=== PATIENT | male | born 1945 | race Caucasian/White ===

== ENCOUNTER → 2020-05-05 15:42 | Outpatient (BNVA) | payer MEDICARE, SELFPAY | PROVIDERS: PCP Internal Medicine; Visit Provider Urology | DX: Z76.89 Persons encountering health services in other specified circumstances (principal) | CPT/HCPCS: Q3014 ==

== ENCOUNTER → 2020-11-17 13:29 | Outpatient (BNVA) | payer MEDICARE, SELFPAY | PROVIDERS: PCP Internal Medicine; Visit Provider Urology | DX: R97.21 Rising PSA following treatment for malignant neoplasm of prostate (principal); C61 Malignant neoplasm of prostate | CPT/HCPCS: 99212 ==

== ENCOUNTER → 2021-06-30 13:19 | Outpatient (BNVA) | payer MEDICARE, SELFPAY | PROVIDERS: PCP Internal Medicine; Visit Provider Urology | DX: Z13.89 Encounter for screening for other disorder (principal) | CPT/HCPCS: Q3014 ==

== ENCOUNTER → 2021-10-28 09:54 | Outpatient (BNVA) | payer MEDICARE, SELFPAY | PROVIDERS: PCP Internal Medicine; Visit Provider Urology | DX: C61 Malignant neoplasm of prostate (principal); R97.21 Rising PSA following treatment for malignant neoplasm of prostate; R39.15 Urgency of urination | CPT/HCPCS: Q3014 ==

== ENCOUNTER → 2021-11-19 08:36 | Outpatient (BNVA) | payer MEDICARE, SELFPAY | PROVIDERS: PCP Internal Medicine; Visit Provider Urology | DX: R97.21 Rising PSA following treatment for malignant neoplasm of prostate (principal); C61 Malignant neoplasm of prostate | CPT/HCPCS: Q3014 ==

== ENCOUNTER → 2022-03-22 09:51 | Outpatient (BNVA) | payer MEDICARE, SELFPAY | PROVIDERS: PCP Internal Medicine; Visit Provider Urology | DX: R97.21 Rising PSA following treatment for malignant neoplasm of prostate (principal); M81.0 Age-related osteoporosis without current pathological fracture; N52.31 Erectile dysfunction following radical prostatectomy; C61 Malignant neoplasm of prostate | CPT/HCPCS: Q3014 ==

== ENCOUNTER → 2022-08-19 10:25 | Outpatient (BNVA) | payer MEDICARE, SELFPAY | PROVIDERS: PCP Internal Medicine; Visit Provider Urology | DX: M81.0 Age-related osteoporosis without current pathological fracture (principal); R97.21 Rising PSA following treatment for malignant neoplasm of prostate; C61 Malignant neoplasm of prostate | CPT/HCPCS: 99212 ==

== ENCOUNTER 2023-02-21 09:48 | Outpatient (AMB) | payer MEDICARE, SELFPAY ==
--- NOTE | 2023-02-21 09:49 | MHC.OFFVIS ---
Intake Intake Visit Reasons: 6M/PSA(set) Intake Note: Patient is Present for Telephone Follow Up For Urology Med: Patient states he was told to stop Finasteride, Was informed to take one month and one month off Antibiotic Allergy: None Blood Thinner: None Pharamcy: Big Y Allergies No Known Allergies Allergy (Verified 02/21/23 09:51) Medication List - Last Reconciled 02/21/23 by David Gandhi MD finasteride 5 mg PO DAILY 90 days flu vac 2019 [id number](PF) 60 mcg (15 mcg x 4)/0.5 mL mL IM pravastatin 20 mg PO DAILY HPI HPI Comments History of Present Illness Details Elvis is very pleasant male. He is a patient of Dr. Patterson. He is seen for the following urologic conditions - prostate cancer - rising PSA following treatment for prostate cancer Telemedicine Evaluation 15 min Consultation [employer] Aure Video attempted Continued PSA rise No evidence of recurrence on PET-CT Had been on alternate months finasteride Try 3 months with finasteride repeat PSA Prostate cancer: Initial therapy prostatectomy 2006, external beam radiation for rising PSA 2012 PSA continues upward trend Prostate cancer was diagnosed [address] Fields. Diagnosis was reached by needle biopsy, for elevated PSA, PSA at diagnosis 4.7. The [place] grade is 4+3 = 7, at surgery with KAYLA. TNM Classification of Malignant Tumours (TNM) T3a The D'Anthony (NCCN) risk category is Intermediate Risk (PSA 10-20, Gl 7, T2). Initial therapy included Primary treatment, Prostatectomy (RRP/Robotic) 2006 , Additional treatment, Observation PSA rise 2012 to 1.2 , Additional treatment, External Beam Radiation finish April 2013. Recent labs included a PSA (prostate-specific antigen) Dec 2015 , < 0.1, a testosterone 413, Jun 2016 < 0.1, November 2016 , a PSA (prostate-specific antigen), , < 0.1, 07/09 , a PSA (prostate-specific antigen) 0.1, 12/06 , a PSA (prostate-specific antigen), 0.1, T 416, 07/10 , a PSA (prostate-specific antigen) 0.2, 11/07 0.2 03/09 0.2, 09/08 0.3, 04/10 0.4, 11/09 0.5, 05/11 0.8, 11/10 1.1, 03/12 0.4, 08/11 0.8, 02/11 1.3 Imaging - 11/10 PET/CT Pylarify - no focal recurrence or metastatic disease Associated conditions erectile dysfunction Yes On Viagra hematuria No hot flashes No incontinence No osteopenia Yes Complete infusion Therapeutic plan: Start finasteride. Four month follow-up PSA Erectile Dysfunction Responsive to Viagra [facility] Medical History Erectile dysfunction Osteoporosis Hyperlipidemia Rising PSA following treatment for malignant neoplasm of prostate Erectile dysfunction following radical prostatectomy Prostate cancer Surgical History History of radical retropubic prostatectomy History of hernia repair History of hip surgery Review of Systems Const All systems reviewed & are unremarkable except as noted in HPI and below Reports no additional complaints Resp Reports no additional complaints GI Reports no additional complaints Reports as per HPI Musc Reports no additional complaints Physical Exam Telemedicine evaluation Appropriate responses Regular breathing rate and rhythm HEENT Head: Yes normal to inspection Ears: hearing grossly normal bilaterally Eyes General: appearance normal, both eyes and all related structures Neck Neck: Yes normal visual inspection Chest Chest palpation & inspection: normal inspection of the chest Resp Effort & Inspection: normal respiratory effort and able to speak in complete sentences Assessment & Plan Assessment & Plan (1) Osteoporosis: Code(s): M81.0 - Age-related osteoporosis without current pathological fracture Qualifiers: Osteoporosis type: other Encounter type: subsequent encounter (2) Prostate cancer: Comment: Radical prostatectomy 2006, salvage radiation 2012 Code(s): C61 - Malignant neoplasm of prostate (3) Rising PSA following treatment for malignant neoplasm of prostate: Code(s): R97.21 - Rising PSA following treatment for malignant neoplasm of prostate Plan Three month follow-up PSA Orders: Orders Prostate Specific Antigen 3 Months R97.21 - Rising PSA following treatment for malignant neoplasm of prostate Medications: New finasteride 5 mg PO DAILY 90 days 90 tabs 1RF N13.8 - Other obstructive and reflux uropathy, N40.1 - Benign prostatic hyperplasia with lower urinary tract symptoms, R33.9 - Retention of urine, unspecified, R97.21 - Rising PSA following treatment for malignant neoplasm of prostate Patient Instructions: Imaging studies, laboratory and physical exam results were discussed and reviewed in detail. No major barriers to patient understanding were identified. An opportunity to ask questions regarding the treatment plan was provided. All questions were answered. The patient expressed understanding and agreement with the above treatment plan. The patient is aware they should contact our office by phone for worsening of their current condition or the appearance of new urologic symptoms. Compliance is encouraged with any medications and followup testing that is ordered. It is a privilege to participate in the urologic care of your patient. If you have any questions or concerns regarding treatment for the above conditions, or other urologic issues, please do not hesitate to contact me. The office telephone contact is [phone]. This note is constructed using voice recognition software. While every effort has been made to ensure accuracy staff development nurse errors may have been included. Yours sincerely, Dr David Gandhi MD, [facility] - Urology Providers of Expert, Compassionate Care for the Genitourinary System Telehealth Telehealth Location of provider rendering services: practice address Location of patient: address on file Patient Identification confirmed using: Name, : Yes Telehealth method: video Patient verbally consented to treatment: Yes Patient verbally consented to billing insurance company: Yes Patient informed of any privacy concerns related to visit: Yes Coding Level of Care Code Tele Est Pt Level 3 (80688) Diagnoses Osteoporosis M81.0 Osteoporosis type: other Encounter type: subsequent encounter Prostate cancer C61 Rising PSA following treatment for malignant neoplasm of prostate R97.21
== END 2023-02-21 10:40 | disposition home or self-care (01) ==
LOC: HO.HUSH 09:48
PROVIDERS: PCP Internal Medicine; Visit Provider Urology
DX: M81.0 Age-related osteoporosis without current pathological fracture (principal); C61 Malignant neoplasm of prostate; R97.21 Rising PSA following treatment for malignant neoplasm of prostate
CPT/HCPCS: 99213

== ENCOUNTER → 2023-02-21 09:48 | Outpatient (BNVA) | payer MEDICARE, SELFPAY | PROVIDERS: PCP Internal Medicine; Visit Provider Urology ==

== ENCOUNTER 2023-05-26 10:41 | Outpatient (AMB) | payer MEDICARE, SELFPAY ==
--- NOTE | 2023-05-26 10:45 | MHC.OFFVIS ---
Intake Intake Visit Reasons: 3m/PSA(set) Intake Note: Patient is Present for Telephone Follow Up PSA Urology Med: Finasteride Antibiotic Allergy: None Blood Thinner: None Allergies No Known Allergies Allergy (Verified 02/21/23 09:51) Medication List - Last Reconciled 05/26/23 by David Gandhi MD finasteride 5 mg PO DAILY 90 days flu vac 2019 [id number](PF) 60 mcg (15 mcg x 4)/0.5 mL mL IM pravastatin 20 mg PO DAILY HPI HPI Comments History of Present Illness Details Elvis is very pleasant male. He is a patient of Dr. Pattersno. He is seen for the following urologic conditions - prostate cancer - rising PSA following treatment for prostate cancer Telemedicine Evaluation 15 min Consultation [employer] Aure Video attempted PSA has stayed relatively well controlled over past 3 months with slight moved He understands that hormone therapy would be required with a PSA of approximately 4 Will continue to follow with interval surveillance No evidence of recurrence on PET-CT - 11/10 PSA 1.1 Prostate cancer: Initial therapy prostatectomy 2006, external beam radiation for rising PSA 2012 PSA continues upward trend Prostate cancer was diagnosed [address] Fields. Diagnosis was reached by needle biopsy, for elevated PSA, PSA at diagnosis 4.7. The [place] grade is 4+3 = 7, at surgery with KAYLA. TNM Classification of Malignant Tumours (TNM) T3a The D'Anthony (NCCN) risk category is Intermediate Risk (PSA 10-20, Gl 7, T2). Initial therapy included Primary treatment, Prostatectomy (RRP/Robotic) 2006 , Additional treatment, Observation PSA rise 2012 to 1.2 , Additional treatment, External Beam Radiation finish April 2013. Recent labs included a PSA (prostate-specific antigen) Dec 2015 , < 0.1, a testosterone 413, Jun 2016 < 0.1, November 2016 , a PSA (prostate-specific antigen), < 0.1, 07/09 , a PSA (prostate-specific antigen) 0.1, 12/06 , a PSA (prostate-specific antigen), 0.1, T 416, 07/10 , a PSA (prostate-specific antigen) 0.2, 11/07 0.2 03/09 0.2, 09/08 0.3, 04/10 0.4, 11/09 0.5, 05/11 0.8, 11/10 1.1, 03/12 0.4, 08/11 0.8, 02/11 1.3, 06/14 1.5 Imaging - 11/10 PET/CT Pylarify - no focal recurrence or metastatic disease Associated conditions erectile dysfunction Yes On Viagra osteopenia Yes Complete infusion Therapeutic plan: 4 month follow-up PSA Erectile Dysfunction Responsive to Viagra [facility] Medical History Erectile dysfunction Osteoporosis Hyperlipidemia Rising PSA following treatment for malignant neoplasm of prostate Erectile dysfunction following radical prostatectomy Prostate cancer Surgical History History of radical retropubic prostatectomy History of hernia repair History of hip surgery Review of Systems Const All systems reviewed & are unremarkable except as noted in HPI and below Reports no additional complaints Resp Reports no additional complaints GI Reports no additional complaints Reports as per HPI Musc Reports no additional complaints Physical Exam Telemedicine evaluation Appropriate responses Regular breathing rate and rhythm HEENT Head: Yes normal to inspection Ears: hearing grossly normal bilaterally Eyes General: appearance normal, both eyes and all related structures Neck Neck: Yes normal visual inspection Chest Chest palpation & inspection: normal inspection of the chest Resp Effort & Inspection: normal respiratory effort and able to speak in complete sentences Assessment & Plan Assessment & Plan (1) Prostate cancer: Comment: Radical prostatectomy 2006, salvage radiation 2012 Code(s): C61 - Malignant neoplasm of prostate (2) Rising PSA following treatment for malignant neoplasm of prostate: Code(s): R97.21 - Rising PSA following treatment for malignant neoplasm of prostate Plan Four month follow-up Orders: Orders Prostate Specific Antigen 4 Months C61 - Malignant neoplasm of prostate Medications: Refilled finasteride 5 mg PO DAILY 90 tabs 1RF 90 days N13.8 - Other obstructive and reflux uropathy, N40.1 - Benign prostatic hyperplasia with lower urinary tract symptoms, R33.9 - Retention of urine, unspecified, R97.21 - Rising PSA following treatment for malignant neoplasm of prostate Patient Instructions: Imaging studies, laboratory and physical exam results were discussed and reviewed in detail. No major barriers to patient understanding were identified. An opportunity to ask questions regarding the treatment plan was provided. All questions were answered. The patient expressed understanding and agreement with the above treatment plan. The patient is aware they should contact our office by phone for worsening of their current condition or the appearance of new urologic symptoms. Compliance is encouraged with any medications and followup testing that is ordered. It is a privilege to participate in the urologic care of your patient. If you have any questions or concerns regarding treatment for the above conditions, or other urologic issues, please do not hesitate to contact me. The office telephone contact is [phone]. This note is constructed using voice recognition software. While every effort has been made to ensure accuracy diaphragm builder errors may have been included. Yours sincerely, Dr David Gandhi MD, [facility] - Urology Providers of Expert, Compassionate Care for the Genitourinary System Telehealth Telehealth Location of provider rendering services: practice address Location of patient: address on file Patient Identification confirmed using: Name, : Yes Telehealth method: video Patient verbally consented to treatment: Yes Patient verbally consented to billing insurance company: Yes Patient informed of any privacy concerns related to visit: Yes Coding Level of Care Code Tele Est Pt Level 3 (59661) Diagnoses Prostate cancer C61 Rising PSA following treatment for malignant neoplasm of prostate R97.21
== END 2023-05-26 11:06 | disposition home or self-care (01) ==
LOC: HO.HUSH 10:41
PROVIDERS: PCP Internal Medicine; Visit Provider Urology
DX: C61 Malignant neoplasm of prostate (principal); R97.21 Rising PSA following treatment for malignant neoplasm of prostate
CPT/HCPCS: 99213

== ENCOUNTER → 2023-05-26 10:41 | Outpatient (BNVA) | payer MEDICARE, SELFPAY | PROVIDERS: PCP Internal Medicine; Visit Provider Urology ==

== ENCOUNTER 2023-09-26 10:25 | Outpatient (AMB) | payer MEDICARE, SELFPAY ==
--- NOTE | 2023-09-26 10:36 | A.OFFVIS_ITS ---
Intake Visit Reasons: 4m/PSA(set)Vm to confirm Intake Note: Patient is Present for Follow Up Urology Medication: Finasteride Antibiotic Allergies: None Blood Thinners:None Allergies No Known Allergies Allergy (Verified 02/21/23 09:51) Medication List - Last Reconciled 09/26/23 by David Gandhi MD finasteride 5 mg PO DAILY 90 days flu vac 2019 [id number](PF) 60 mcg (15 mcg x 4)/0.5 mL mL IM pravastatin 20 mg PO DAILY HPI Comments Details: Elvis is very pleasant male. He is a patient of Dr. Patterson. He is seen for the following urologic conditions - prostate cancer - rising PSA following treatment for prostate cancer Continue slow PSA rise doubling time over 12 months Would remain on cycling finasteride Four month follow-up PSA No evidence of recurrence on PET-CT - 11/10 PSA 1.1 Prostate cancer: Initial therapy prostatectomy 2006, external beam radiation for rising PSA 2012 PSA continues upward trend Prostate cancer was diagnosed [address] Fields. Diagnosis was reached by needle biopsy, for elevated PSA, PSA at diagnosis 4.7. The [place] grade is 4+3 = 7, at surgery with KAYLA. TNM Classification of Malignant Tumours (TNM) T3a The D'Anthony (NCCN) risk category is Intermediate Risk (PSA 10-20, Gl 7, T2). Initial therapy included Primary treatment, Prostatectomy (RRP/Robotic) 2006 , Additional treatment, Observation PSA rise 2012 to 1.2 , Additional treatment, External Beam Radiation finish April 2013. Recent labs included a PSA (prostate-specific antigen) Dec 2015 , < 0.1, a testosterone 413, Jun 2016 < 0.1, November 2016 , a PSA (prostate-specific antigen), < 0.1, 07/09 , a PSA (prostate-specific antigen) 0.1, 12/06 , a PSA (prostate-specific antigen), 0.1, T 416, 07/10 , a PSA (prostate-specific antigen) 0.2, 11/07 0.2 03/09 0.2, 09/08 0.3, 04/10 0.4, 11/09 0.5, 05/11 0.8, 11/10 1.1, 03/12 0.4, 08/11 0.8, 02/11 1.3, 06/14 1.5, 10/12 1.9 Imaging - 11/10 PET/CT Pylarify - no focal recurrence or metastatic disease Associated conditions erectile dysfunction Yes On Viagra osteopenia Yes Complete infusion Therapeutic plan: 4 month follow-up PSA Erectile Dysfunction Responsive to Vi[facility] Medical History Erectile dysfunction Osteoporosis Hyperlipidemia Rising PSA following treatment for malignant neoplasm of prostate Erectile dysfunction following radical prostatectomy Prostate cancer Surgical History History of radical retropubic prostatectomy History of hernia repair History of hip surgery Review of Systems Const Denies chills and Denies fever(s) Card Reports no additional complaints and Denies syncope Resp Denies cough GI Denies abdominal pain and Denies heartburn Reports as per HPI and Denies change in libido Neuro Denies syncope Psych Denies change in libido Endo Denies change in libido Physical Exam Const General: cooperative, healthy appearing, comfortable and no acute distress Orientation/consciousness: patient oriented x3 HEENT Face and sinus: Yes normal facial exam Mouth: moist mucous membranes Neck Neck: Yes normal visual inspection, Yes full ROM and Yes trachea midline Chest Chest palpation & inspection: normal inspection of the chest Resp Effort & Inspection: normal respiratory effort, able to speak in complete sentences and no respiratory distress GI Inspection: Yes normal to inspection Back/Spine/Pelvis Cervical Spine: normal cervical lordosis Thoracic/Lumbar Spine: thoracic and lumbar spine normal to inspection Skin General skin exam: no rashes or lesions noted Neuro General: patient oriented x3, gait normal, tone normal and moves all extremities Extrem General: Yes normal to inspection and Yes capillary refill normal Assessment & Plan Assessment & Plan (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 No major barriers to patient understanding were identified. An opportunity to ask questions regarding the treatment plan was provided. All questions were answered. The patient expressed understanding and agreement with the above treatment plan. The patient is aware they should contact our office by phone for worsening of their current condition or the appearance of new urologic symptoms. Compliance is encouraged with any medications and followup testing that is ordered. It is a privilege to participate in the urologic care of your patient. If you have any questions or concerns regarding treatment for the above conditions, or other urologic issues, please do not hesitate to contact me. The office telephone contact is [phone]. This note is constructed using voice recognition software. While every effort has been made to ensure accuracy dosier operator errors may have been included. Yours sincerely, Dr David Gandhi MD, [facility] - Urology Providers of Expert, Compassionate Care for the Genitourinary System Coding Level of Care Code Est Pt Level 3 (81412) Diagnoses Biochemically recurrent castration-sensitive adenocarcinoma of prostate C61; R97.21; Z19.1
== END 2023-09-26 11:00 | disposition home or self-care (01) ==
PROVIDERS: PCP Internal Medicine; Visit Provider Urology
DX: C61 Malignant neoplasm of prostate (principal); R97.21 Rising PSA following treatment for malignant neoplasm of prostate; Z19.1 Hormone sensitive malignancy status
CPT/HCPCS: 99213

== ENCOUNTER → 2023-09-26 10:25 | Outpatient (BNVA) | payer MEDICARE, SELFPAY | PROVIDERS: PCP Internal Medicine; Visit Provider Urology | DX: R97.21 Rising PSA following treatment for malignant neoplasm of prostate (principal); C61 Malignant neoplasm of prostate; Z19.1 Hormone sensitive malignancy status | CPT/HCPCS: 99212 ==

== ENCOUNTER 2024-01-26 10:03 | Outpatient (AMB) | payer MEDICARE, SELFPAY ==
--- NOTE | 2024-01-26 10:04 | MHC.OFFVIS ---
Intake Visit Reasons: 4m/PSA(SET) Intake Note: Patient is Present for Telephone Follow Up PSA Urology Med: Finasteride Antibiotic Allergy:None Blood Thinner:None Recent PSA 01/24/2024 PSA- 2.5 Small Business Sales Representative Required: No Allergies No Known Allergies Allergy (Verified 01/26/24 10:05) Medication List - Last Reconciled 01/26/24 by David Gandhi MD finasteride 5 mg PO DAILY 90 days flu vac 2019 [id number](PF) 60 mcg (15 mcg x 4)/0.5 mL mL IM pravastatin 20 mg PO DAILY HPI Comments Details: Elvis is very pleasant male. He is a patient of Dr. Carrion. He is seen for the following urologic conditions - prostate cancer - rising PSA following treatment for prostate cancer Telemedicine Evaluation 15 min Consultation [employer] Aure Video Has been cycling finasteride PSA doubling time greater than 12 months Six-month follow-up Discussed intermittent hormone therapy No evidence of recurrence on PET-CT - 11/10 PSA 1.1 Prostate cancer: Initial therapy prostatectomy 2006, external beam radiation for rising PSA 2012 PSA continues upward trend Prostate cancer was diagnosed [address] Fields. Diagnosis was reached by needle biopsy, for elevated PSA, PSA at diagnosis 4.7. The [place] grade is 4+3 = 7, at surgery with KAYLA. TNM Classification of Malignant Tumours (TNM) T3a The D'Anthony (NCCN) risk category is Intermediate Risk (PSA 10-20, Gl 7, T2). Initial therapy included Primary treatment, Prostatectomy (RRP/Robotic) 2006 , Additional treatment, Observation PSA rise 2012 to 1.2 , Additional treatment, External Beam Radiation finish April 2013. Recent labs included a PSA (prostate-specific antigen) Dec 2015 , < 0.1, a testosterone 413, Jun 2016 < 0.1, November 2016 , a PSA (prostate-specific antigen), < 0.1, 07/09 , a PSA (prostate-specific antigen) 0.1, 12/06 , a PSA (prostate-specific antigen), 0.1, T 416, 07/10 , a PSA (prostate-specific antigen) 0.2, 11/07 0.2 03/09 0.2, 09/08 0.3, 04/10 0.4, 11/09 0.5, 05/11 0.8, 11/10 1.1, 03/12 0.4, 08/11 0.8, 02/11 1.3, 06/14 1.5, 10/12 1.9, 02/12 2.5 Imaging - 11/10 PET/CT Pylarify - no focal recurrence or metastatic disease Associated conditions erectile dysfunction Yes On Viagra osteopenia Yes Complete infusion Therapeutic plan: Six-month follow-up PSA Erectile Dysfunction Responsive to Viagra [facility] Medical History Erectile dysfunction Osteoporosis Hyperlipidemia Rising PSA following treatment for malignant neoplasm of prostate Erectile dysfunction following radical prostatectomy Prostate cancer Surgical History History of radical retropubic prostatectomy History of hernia repair History of hip surgery Review of Systems Const All systems reviewed & are unremarkable except as noted in HPI and below Reports no additional complaints Resp Reports no additional complaints GI Reports no additional complaints Reports as per HPI Musc Reports no additional complaints Physical Exam Telemedicine evaluation Appropriate responses Regular breathing rate and rhythm HEENT Head: Yes normal to inspection Ears: hearing grossly normal bilaterally Eyes General: appearance normal, both eyes and all related structures Neck Neck: Yes normal visual inspection Chest Chest palpation & inspection: normal inspection of the chest Resp Effort & Inspection: normal respiratory effort and able to speak in complete sentences Telehealth Telehealth Telehealth Platform: [employer] Location of provider rendering services: practice address Location of patient: address on file Patient Identification confirmed using: Name, : Yes Telehealth method: video Patient verbally consented to treatment: Yes Patient verbally consented to billing insurance company: Yes Patient informed of any privacy concerns related to visit: Yes Minutes spent on Phone/Video with Pt.: 15 Assessment & Plan Assessment & Plan (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: Code(s): C61 - Malignant neoplasm of prostate; R97.21 - Rising PSA following treatment for malignant neoplasm of prostate; Z19.1 - Hormone sensitive malignancy status Category: Medical (2) Rising PSA following treatment for malignant neoplasm of prostate: Code(s): R97.21 - Rising PSA following treatment for malignant neoplasm of prostate Category: Medical Plan Six-month follow-up PSA Orders: Orders Prostate Specific Antigen 6 Months R97.21 - Rising PSA following treatment for malignant neoplasm of prostate Patient Instructions: Imaging studies, laboratory and physical exam results were discussed and reviewed in detail. No major barriers to patient understanding were identified. An opportunity to ask questions regarding the treatment plan was provided. All questions were answered. The patient expressed understanding and agreement with the above treatment plan. The patient is aware they should contact our office by phone for worsening of their current condition or the appearance of new urologic symptoms. Compliance is encouraged with any medications and followup testing that is ordered. It is a privilege to participate in the urologic care of your patient. If you have any questions or concerns regarding treatment for the above conditions, or other urologic issues, please do not hesitate to contact me. The office telephone contact is [phone]. This note is constructed using voice recognition software. While every effort has been made to ensure accuracy microelectronics engineer errors may have been included. Yours sincerely, Dr David Gandhi MD, [facility] - Urology Providers of Expert, Compassionate Care for the Genitourinary System Coding Level of Care Code Tele Est Pt Level 3 (39062) Complex EM visit Add On G2211 Diagnoses Biochemically recurrent castration-sensitive adenocarcinoma of prostate C61; R97.21; Z19.1 Rising PSA following treatment for malignant neoplasm of prostate R97.21
== END 2024-01-26 10:30 | disposition home or self-care (01) ==
LOC: HO.HUSH 10:03
PROVIDERS: PCP Internal Medicine; Visit Provider Urology
DX: C61 Malignant neoplasm of prostate (principal); R97.21 Rising PSA following treatment for malignant neoplasm of prostate; Z19.1 Hormone sensitive malignancy status
CPT/HCPCS: 99213; G2211

== ENCOUNTER → 2024-01-26 10:03 | Outpatient (BNVA) | payer MEDICARE, SELFPAY | PROVIDERS: PCP Internal Medicine; Visit Provider Urology ==

== ENCOUNTER 2024-04-27 16:19 | Emergency (ER) | payer MEDICARE, SELFPAY ==
--- NOTE | 2024-04-27 | ECG_ITS ---
Test Reason : CHEST PRESSURE Blood Pressure : / mmHG Vent. Rate : 073 BPM Atrial Rate : 073 BPM P-R Int : 188 ms QRS Dur : 110 ms QT Int : 400 ms P-R-T Axes : 039 -06 019 degrees QTc Int : 440 ms Sinus rhythm with occasional Premature ventricular complexes Inferior infarct , age undetermined Abnormal ECG No previous ECGs available Referred By: Generic ED Physician Electronically Signed By:Ramakrishna Colvin
--- NOTE | ~2024-04-27 | XR_ITS ---
EXAMINATION: XR CHEST CLINICAL INFORMATION: chest pain COMPARISON: None available. TECHNIQUE: 2 views of the chest were obtained. FINDINGS: Heart and pulmonary vessels appear normal. No evidence of CHF. No pleural effusions. Some minimal ill-defined densities are present at the lung bases, left greater than right which could represent atelectasis/infiltrate. XR/XR chest 2V IMPRESSION: Minimal bibasilar densities, left greater than right. Electronically signed by: Luigi Castillo MD 04/27/2024 07:14 PM [facility]
[2024-04-27 16:27] VITALS: BP 144/86; O2SAT 98; BMI 22.1
[2024-04-27 16:31] VITALS: BP 128/82; PULSE 84; RESP 18; TEMP 36.5; O2SAT 97
[2024-04-27 16:49] LABS: MANUAL DIFF FLAG NO
[2024-04-27 16:51] LABS: Basophils Percent Auto 0.4 % (0-2); Eosinophils Absolute Auto 0.1 X10*3/uL (0.0-0.4); Eosinophils Percent Auto 1.5 % (0-4); Hematocrit 39.9 % (42.0-52.0); Hemoglobin 13.7 g/dl (14.0-18.0); Imm Gran Abs Auto 0.01 X10*3/uL (0.00-0.03); Imm Gran Pct Auto 0.1 % (0.0-0.4); Lymphocytes Absolute Auto 1.4 X10*3/uL (1.2-4.9); Lymphocytes Percent Auto 19.8 % (20-40); Mean Corpuscular HGB Conc 34.3 g/dl (31.0-36.0); Mean Corpuscular Hemoglobin 29.7 pg (27.0-33.0); Mean Corpuscular Volume 86.6 fL (80.0-98.0); Mean Platelet Volume 9.1 fL (9.4-12.4); Monocytes Absolute Auto 0.5 X10*3/uL (0.1-1.2); Monocytes Percent Auto 7.1 % (2-11); Neutrophils Absolute Auto 5.1 x10*3/uL (2.0-8.3); Neutrophils Percent Auto 71.1 % (45-73); Platelet Count 218 X10*3/uL (160-400); Red Blood Count 4.61 X10*6/uL (4.60-5.80); Red Cell Distribution Width 13.5 % (11.0-16.0); White Blood Count 7.2 X10*3/uL (4.8-10.8)
[2024-04-27 17:17] LABS: Alanine Aminotransferase 48 U/L (0-40); Albumin Level 3.7 g/dL (3.5-5.0); Alkaline Phosphatase 52 U/L (39-117); Anion Gap 11 (12-20); Aspartate Amino Transferase 76 U/L (5-37); Bilirubin Total 0.4 mg/dL (0.0-1.0); Blood Urea Nitrogen 19 mg/dL (9-16); Calcium 9.1 mg/dL (8.4-10.2); Carbon Dioxide 25 mmol/L (22-29); Chloride 108 mmol/L (96-108); Creatinine Clr Calc Pharmacy 67.6; Estimated Glomerular Filt Rate > 60; Glucose Random 119 mg/dL (60-115); Potassium 4.1 mmol/L (3.3-5.1); Sodium 140 mmol/L (135-145); Total Protein 6.5 g/dL (6.5-8.0); Troponin-I High Sensitivity < 2.7 ng/L (<3.5-35.0)
[2024-04-27 17:27] LABS: Influenza A PCR NEGATIVE (Negative); Influenza B PCR NEGATIVE (Negative); Resp Syncy Virus RNA Qual PCR NEGATIVE (Negative); SARS COV2 PCR INHOUSE NEGATIVE (Negative)
[2024-04-27 18:35] VITALS: BP 130/79; PULSE 75; RESP 18; TEMP 36.6; O2SAT 96
--- NOTE | 2024-04-27 20:28 | PC.NURSE ---
pt reports he is feeling better and would like to go home.
--- NOTE | 2024-04-27 21:18 | ED.CHESTPAIN ---
HPI - Chest Pain General Chief Complaint: Chest Pain Stated Complaint: weak,chest tightness Time Seen by Provider: 04/27/24 20:53 Source: patient, RN notes reviewed and old records reviewed Mode of arrival: EMS Limitations: no limitations History of Present Illness ED Provider: Anni RODAS narrative: 79-year-old male past medical history significant for hyperlipidemia and prostate cancer presents for evaluation of chest pain. Patient reports that when he woke up this morning he ?felt off. ? He did not have any specific symptoms but reports feeling ?weak. ? While getting ready for synagogue around 3:00 p.m. he had a brief episode of chest pain. He reports that the symptoms felt like a ?pressure. ? The were in the center of his chest. His symptoms started while he was walking his dog. He called EMS and was brought to the emergency department. He has not taken any medications including nitroglycerin or aspirin for this. The patient denies any known history of coronary artery disease. His symptoms resolved within a few minutes and he has not had any chest pain since He has no other complaints including cough, shortness of breath, palpitations He did not have any abdominal pain, nausea vomiting Related Data Home Medications ?Medication ?Instructions ?Recorded ?Confirmed flu vacc 2020-21(65yr ml IM 05/05/20 01/26/24 up)-MF59C(PF) 60 mcg(15 mcgx4)/0.5 mL IM syringe pravastatin 20 mg tablet 20 mg PO DAILY 02/21/23 01/26/24 Previous Rx's ?Medication ?Instructions ?Recorded finasteride 5 mg tablet 5 mg PO DAILY 90 days #90 tabs 04/17/24 Allergies Allergy/AdvReac Type Severity Reaction Status Date / Time No Known Allergies Allergy Verified 04/27/24 16:29 Review of Systems Constitutional: Constitutional: Reports as per HPI, Denies chills, Denies fatigue, Denies fever(s) and Denies headache(s) ENT: Denies headache(s) Cardiovascular: Cardiovascular: Denies dyspnea Respiratory: Respiratory: Denies cough and Denies dyspnea Gastrointestinal: Gastrointestinal: Denies abdominal pain, Denies constipation and Denies vomiting Genitourinary: Genitourinary: Denies difficulty urinating and Denies dysuria Neurologic: Denies headache(s) and Denies focal weakness Endocrine: Endocrine: Denies fatigue PMFSH Past Medical History Medical History Erectile dysfunction Osteoporosis Hyperlipidemia Rising PSA following treatment for malignant neoplasm of prostate Erectile dysfunction following radical prostatectomy Prostate cancer Surgical History History of radical retropubic prostatectomy History of hernia repair History of hip surgery Social History Social History Smoked in Last 30 Days: No Use of substances other than those prescribed or required for medical reasons: No Advance Directives: No Advance Directives Information Provided: No Do you have a plan to hurt others: No Plan Physical Exam Vital Signs: Vital Signs: Last Vital Signs Temp 98.0 F 04/27/24 21:43 Pulse 65 04/27/24 21:43 Resp 16 04/27/24 21:43 BP 124/78 04/27/24 21:43 Pulse Ox 96 04/27/24 21:43 O2 Del Method Room Air 04/27/24 21:43 BMI result Body Mass Index 22.1 Const: General: healthy appearing, comfortable, no acute distress, alert and awake Nutritional Appearance: well nourished Orientation/consciousness: patient oriented x3 HEENT: Head: Yes normocephalic and Yes atraumatic Eyes: Eyelids: Yes eyelids normal Conjunctivae: conjunctivae normal Sclerae: sclerae normal Corneas: corneas normal Pupils: Equal, round and reactive pupils present EOM: EOMs intact bilaterally Neck: Neck: Yes full ROM Resp: Effort & Inspection: normal respiratory effort, able to speak in complete sentences and not labored Cardio: Rate: regular rate Rhythm: regular rhythm GI: Inspection: No distended Palpation (GI): Soft to palpation, not firm, nontender, no guarding and not rigid Skin: General skin exam: no rashes or lesions noted and elasticity normal Neuro: General: patient oriented x3 Cranial nerves: Yes Equal, round and reactive pupils present and Yes Bilaterally intact EOM present Cognition (Neuro): normal cognition Medical Decision Making Medical Decision Making MDM Narrative: 71-year-old male presents for evaluation of chest pain. His symptoms lasted for a few minutes after walking his dog. His EKG does have T-wave inversions in lead 3 but otherwise is a normal sinus rhythm without evidence of ST segment elevation or depression. He had a troponin and a repeat troponin, both of which were unremarkable. He rules out for ACS. His vital signs have been stable. His chest x-ray is clear, he has not been hypoxic or tachycardic. I doubt PE. His symptoms are most likely related to indigestion. He does not carry a history of hypertension and he is not hypotensive in the ER. I doubt aortic disease. The patient will be discharged to follow-up with cardiology as an outpatient. He is currently chest pain-free. Differential Diagnosis Differential Diagnoses: The differential diagnosis associated with the presentation includes Chest pain Chest wall pain Indigestion GERD ACS less likely Admission/Observation Consideration of admission/observation: Escalation of care including admission/observation considered Patient ruled out for ACS Lab Data MDM Lab Attestation statement: I reviewed the patient's lab results. No leukocytosis or significant anemia. Normal platelet count. No electrolyte abnormalities. Troponin negative in delta troponin also negative 04/27/24 16:44 04/27/24 16:44 Labs: Lab Results 04/27/24 04/27/24 Range/Units 16:44 21:38 WBC 7.2 (4.8-10.8) X10*3/uL RBC 4.61 (4.60-5.80) X10*6/uL Hgb 13.7 L (14.0-18.0) g/dl Hct 39.9 L (42.0-52.0) % MCV 86.6 (80.0-98.0) fL MCH 29.7 (27.0-33.0) pg MCHC 34.3 (31.0-36.0) g/dl RDW 13.5 (11.0-16.0) % Plt Count 218 (160-400) X10*3/uL MPV 9.1 L (9.4-12.4) fL Immature Gran % (Auto) 0.1 (0.0-0.4) % Neut % (Auto) 71.1 (45-73) % Lymph % (Auto) 19.8 L (20-40) % [place] % (Auto) 7.1 (2-11) % Eos % (Auto) 1.5 (0-4) % Baso % (Auto) 0.4 (0-2) % Lymph # (Auto) 1.4 (1.2-4.9) X10*3/uL [place] # (Auto) 0.5 (0.1-1.2) X10*3/uL Eos # (Auto) 0.1 (0.0-0.4) X10*3/uL Baso # (Auto) 0.0 (0.0-0.2) X10*3/uL Abs Immat Gran (auto) 0.01 (0.00-0.03) X10*3/uL Absolute Neuts (auto) 5.1 (2.0-8.3) x10*3/uL Absolute Nucleated RBC 0.000 (0.0-0.012) X10*3/uL Nucleated RBC % (auto) 0.0 (0.0-0.2) /100WBC Sodium 140 (135-145) mmol/L Potassium 4.1 (3.3-5.1) mmol/L Chloride 108 (96-108) mmol/L Carbon Dioxide 25 (22-29) mmol/L Anion Gap 11 L (12-20) BUN 19 H (9-16) mg/dL Creatinine 0.94 (0.5-1.4) mg/dL Estim Creat Clear Calc 67.6 Estimated GFR > 60 Random Glucose 119 H (60-115) mg/dL Calcium 9.1 (8.4-10.2) mg/dL Magnesium 2.0 (1.6-2.6) mg/dL Total Bilirubin 0.4 (0.0-1.0) mg/dL AST 76 H (5-37) U/L ALT 48 H (0-40) U/L Alkaline Phosphatase 52 (39-117) U/L Troponin I High Sens < 2.7 < 2.7 (<3.5-35.0) ng/L Total Protein 6.5 (6.5-8.0) g/dL Albumin 3.7 (3.5-5.0) g/dL Influenza Type A (PCR) NEGATIVE (Negative) Influenza Type B (PCR) NEGATIVE (Negative) RSV RNA Qual (PCR) NEGATIVE (Negative) SARS-CoV-2 RNA (RT-PCR) NEGATIVE (Negative) Independent Interpretation I performed an independent interpretation of an: EKG (Normal sinus rhythm with a rate of 73 beats minute. There is a single PVC. T-wave inversion in lead 3) and Plain X-Ray (No focal infiltrates) Radiology Impression Discussion of test interpretation with radiology: I have reviewed the radiologist's reading. Radiologist Impression: FINDINGS: Heart and pulmonary vessels appear normal. No evidence of CHF. No pleural effusions. Some minimal ill-defined densities are present at the lung bases, left greater than right which could represent atelectasis/infiltrate. XR/XR chest 2V IMPRESSION: Minimal bibasilar densities, left greater than right. Electronically signed by: Luigi Castillo MD 04/27/2024 07:14 PM [facility] [place] Discharge Clinical Impression: Chest pain Patient Disposition: Home, Self-Care Instructions: Chest Pain (ED) Additional Instructions: Your workup in the ER today was reassuring. This includes your blood work, EKG and chest x-ray I recommend that you follow-up with cardiology. Call the number provided to schedule follow-up Return for new or worsening symptoms Prescriptions: No Action finasteride 5 mg tablet 5 mg PO DAILY 90 Days Qty: 90 1RF Fluad Quad 2019-21(65y up)(PF) 60 mcg (15 mcg x 4)/0.5 mL syringe IM pravastatin 20 mg tablet 20 mg PO DAILY Referrals: Ramakrishna Colvin MD [Physician] - (chest pain) Print Language: Northern Irish
[2024-04-27 21:43] VITALS: BP 124/78; PULSE 65; RESP 16; TEMP 36.7; O2SAT 96
[2024-04-27 22:04] LABS: Troponin-I High Sensitivity < 2.7 ng/L (<3.5-35.0)
[2024-04-27 22:16] VITALS: BP 124/78; PULSE 65; RESP 16; TEMP 36.7; O2SAT 96
== END 2024-04-27 22:17 | disposition home or self-care (01) ==
PROVIDERS: Physician Assistant; Emergency Provider Internal Medicine; PCP Internal Medicine
DX: R07.9 Chest pain, unspecified (principal); R53.1 Weakness; Z03.818 Encounter for observation for suspected exposure to other biological agents ruled out; E78.5 Hyperlipidemia, unspecified; Z85.46 Personal history of malignant neoplasm of prostate; Z79.02 Long term (current) use of antithrombotics/antiplatelets; Z79.899 Other long term (current) drug therapy
CPT/HCPCS: 0241U; 36415; 71046; 80053; 83735; 84484; 85025; 93005; 99285

== ENCOUNTER → 2024-04-27 16:30 | Outpatient (BNV) | payer MEDICARE, SELFPAY | PROVIDERS: Emergency Provider Internal Medicine; PCP Internal Medicine; Visit Provider Internal Medicine Cardiovascular Disease | DX: R94.31 Abnormal electrocardiogram [ECG] [EKG] (principal) | CPT/HCPCS: 93010 ==

== ENCOUNTER 2024-05-20 09:02 | Outpatient (AMB) | payer MEDICARE, SELFPAY ==
--- NOTE | 2024-05-20 09:07 | A.OFFVIS_ITS ---
Vital Signs 05/20/24 09:08 Height 6 ft Weight 164 lb 7.437 oz BMI 22.3 BP 124/80 Blood Pressure Location Lt brachial Position Sitting Pulse 74 Pulse Source Pulse Oximeter Intake [place] [facility] [place] Required: No Allergies No Known Allergies Allergy (Verified 04/27/24 16:29) Medication List - Last Reconciled 05/20/24 by Lora Avitia, ENOCH-C finasteride 5 mg PO DAILY 90 days flu vac 2020 [id number](PF) 60 mcg (15 mcg x 4)/0.5 mL mL IM pravastatin 20 mg PO DAILY HPI [facility] ER- Follow up: Details: Elvis is a 79-year-old male with past medical history of hyperlipidemia, prosta te CA status post surgical resection who now follows with urology. He recently had an episode of chest pressure and shortness of breath, calling 911 and having ER evaluation without significant findings. He was referred to Cardiology in follow-up. Today he presents for cardiology consultation. He denies any known history of heart disease. He tells me on the day of his ER evaluation he had walked his dog then when he got home he was getting ready for gnosticism. He experience some lightheadedness along with shortness of breath and a pressure in his mid chest. It lasted until EMS arrived and then he said it gradually improved. He did not have any symptoms like that in the past and has not had any since that time. He says he walks his dog 2 miles each day and normally tolerates it well. He has no known respiratory issues. He briefly smoked as a young adult and has been a nonsmoker since then. No PND, orthopnea or edema. No heart palpitations, presyncope, syncope, falls. He has never had syncope. He will drink an occasional beer. He describes himself as very active. He is for the last 14 years. He [facility] for activities and socializing. [facility] Medical History (Updated 05/20/24 @ 10:34 by MAURY IsraelC) Erectile dysfunction Osteoporosis Hyperlipidemia Rising PSA following treatment for malignant neoplasm of prostate Erectile dysfunction following radical prostatectomy Prostate cancer Surgical History History of radical retropubic prostatectomy History of hernia repair History of hip surgery Review of Systems Const All systems reviewed & are unremarkable except as noted in HPI and below ENT Denies dizziness Card Denies chest pain, Denies chest pain at rest, Denies chest pain with activity, Denies rapid heart rate, Denies pedal edema, Denies edema, Denies leg edema, Denies lightheadedness, Denies palpitations, Denies dyspnea, Denies dyspnea on exertion and Denies orthopnea Resp Denies cough, Denies dyspnea and Denies dyspnea on exertion GI Denies hematochezia and Denies change in stool character Musc Denies abnormal gait, Denies limited range of motion, Denies muscle cramps, Denies muscle weakness, Denies numbness, Denies radiating pain into limb, Denies stiffness and Denies tingling Neuro Denies abnormal gait, Denies dizziness, Denies numbness and Denies tingling Endo Denies palpitations Physical Exam Vital Signs: Last Vital Signs Pulse 74 05/20/24 09:08 BP 124/80 05/20/24 09:08 BMI result Body Mass Index 22.3 Const General: cooperative, healthy appearing, comfortable and no acute distress Orientation/consciousness: patient oriented x3 Neck Neck: Yes normal visual inspection and Yes no JVD Resp Effort & Inspection: normal respiratory effort Auscultation: clear to auscultation bilaterally, no crackles, no rales, no rhonchi and no wheezes Cardio Jugular venous distension: no JVD Rate: regular rate Rhythm: regular rhythm Heart sounds: S1 normal heart sound present, S2 normal heart sound present, no murmurs and no rubs Neuro General: patient oriented x3 Extrem General: Yes normal to inspection, No no pedal edema and No calf tenderness Psych Appearance: grossly normal Mental Status: mental status grossly normal Speech and movement: Normal speech and movement present Assessment & Plan Assessment & Plan (1) Chest pain: Code(s): R07.9 - Chest pain, unspecified Category: Medical Plan: One episode of chest discomfort that was preceded by some lightheadedness and shortness of breath. The episode lasted several minutes and gradually resolved. He did have ER evaluation on that day, 04/27/2024 and ruled out for ACS. His EKG did show a T-wave inversion in leads 3 which could be normal variant. His chest x-ray showed minimal bibasilar densities left greater than right. Had no recent signs of illness. He states since that time he has continued his normal activities and has not had any recurrent symptoms. He walks his dog 2 miles each day. Cardiac risk factors of advanced age, hyperlipidemia. He is on pra vastatin and most recent LDL was 85. For further evaluation will order an echocardiogram and exercise stress test. He tells me he will be able to walk on a treadmill. Signs and symptoms of angina reviewed with him. Cardiology follow-up in 2 months, sooner if needed. Emergency care if ever needed for recurrent symptoms. (2) Hyperlipidemia: Code(s): E78.5 - Hyperlipidemia, unspecified Category: Medical Plan: [place] LDL goal less than 100. Labs done 10/18/2023 showed LDL 85. Continue pravastatin. Plan Time spent on chart review, documentation, interview and assessment Orders: Orders CA echo transthoracic complete Today E78.5 - Hyperlipidemia, unspecified, R07.9 - Chest pain, unspecified CA stress test Today E78.5 - Hyperlipidemia, unspecified, R07.9 - Chest pain, unspecified Coding Level of Care Code New Pt Level 4 (70882) Complex EM visit Add On G2211 Diagnoses Chest pain R07.9 Hyperlipidemia E78.5 Time Spent (min) 28
[2024-05-20 09:08] VITALS: BP 124/80; PULSE 74; BMI 22.3
== END 2024-05-20 09:43 | disposition home or self-care (01) ==
PROVIDERS: PCP Internal Medicine; Visit Provider Nurse Practitioner Family
DX: R07.9 Chest pain, unspecified (principal); E78.5 Hyperlipidemia, unspecified
CPT/HCPCS: 99204; G2211

== ENCOUNTER → 2024-05-20 09:02 | Outpatient (BNVA) | payer MEDICARE, SELFPAY | PROVIDERS: PCP Internal Medicine; Visit Provider Nurse Practitioner Family | DX: R07.9 Chest pain, unspecified (principal); E78.5 Hyperlipidemia, unspecified | CPT/HCPCS: 99202 ==

== ENCOUNTER → 2024-06-10 10:00 | Outpatient (BNV) | payer MEDICARE, SELFPAY | PROVIDERS: PCP Internal Medicine | DX: I49.3 Ventricular premature depolarization (principal) | CPT/HCPCS: 93016; 93018; 93320; 93325; 93350 ==

== ENCOUNTER → 2024-06-10 10:04 | Outpatient (REF) | payer MEDICARE, SELFPAY ==
--- NOTE | 2024-06-10 10:00 | CA_ITS ---
Acquisition Time: 2024-06-10 10:50:11 Total Exercise Time: 00:01:42 Test Indications: chest pain Medications: pravastatin Protocol: DALY Max HR: 148 BPM 104% of Pred: 142 BPM Max BP: 112/70 mmHG Max Work Load: 4.0 METS Exercise Stress Test with exercise 1 min 42 secs of Daly Protocol, achieving 102% MPHR, unable to go on due to hip discomfort, difficulty walking on the treadmill and feeling fatigue, with frequent isolated PVCs, ventricular bigeminy, with normotensive response to exercise. Without EKG changes at the achieved workload. In recovry, feeling back to baseline. Will order Pharmacologic Stress Test with Lexiscan. Test reviewed with Dr. Lucero. Referred By: Lora Avitia Electronically Signed By: Hunter Estrada
--- NOTE | 2024-06-10 13:46 | CA_ITS ---
Transthoracic Echocardiogram Patient (Last, First, Middle): Elvis Akhtar A Gender: Male Date of : 1945 Age: 79 Procedure Date: 06/10/2024 Procedure Type: Transthoracic Echocardiogram Location: OP Height: 172.72 cm Weight: 72.58 kg BSA: 1.86 m2 Heart Rate: 79 bpm BP: 135 / 70 mmHg Calculator Operator: SASKIA Santana MD: Lora vAitia [employer]MENT [employer]INGER-C Honey Grader And Blender: Valerio Lucero MD Symptoms: R07.9 - Chest pain, unspecified Study Quality: Fair ECG Rhythm: Sinus with occasional PVCs Conclusions: - 1. Normal LV ejection fraction 55-60% with mild LVH with grade 1 diastolic dysfunction 2. Mild aortic and mitral regurgitation 3. Moderately dilated ascending aorta at 4.5 cm 4. Normal RV systolic pressure 5. No gross pericardial effusion Findings Left Ventricle Normal left ventricular size and systolic function. There is mildly increased left ventricular wall thickness. The visually estimated ejection fraction is between 55-60%. Spectral Doppler is indicative of an impaired relaxation filling pattern. E/E prime ratio is <8, consistent with normal filling pressures. Evidence suggests grade I (mild) diastolic dysfunction. There is moderate septal asymmetric hypertrophy. Right Ventricle Normal right ventricular cavity size and systolic function. Atria The left atrium is normal in size. There is no evidence of interatrial shunt. The right atrium is normal in size. Aortic Valve Normal aortic valve structure and function. There is no aortic valve stenosis. There is mild aortic valve regurgitation. Mitral Valve Normal mitral valve structure and function. There is mild mitral valve regurgitation. There is no mitral valve stenosis. Pulmonic Valve The pulmonic valve was not well visualized. Tricuspid Valve Likely normal tricuspid valve structure and function. There is mild tricuspid valve regurgitation. The right ventricular systolic pressure is normal. The right ventricular systolic pressure is 22 mmHg. Normal right atrial pressure. There is no evidence of pulmonary hypertension. Great Vessels The pulmonary artery was not well visualized. There is moderate dilatation of the ascending aorta measuring 4.50 cm. Venous The inferior vena cava is normal in size and collapses greater than 50% with inspiration. Pericardium/Pleural There is no evidence of pericardial effusion. Prior Study Comparison No prior study available for comparison. Measurements 2D Linear Measurements IVSd: 1.36 0.6-0.9/0.6-1.0 cm LVIDd: 3.09 3.9-5.3/4.2-5.9 cm LVIDd Index: 1.66 2.4-3.2/2.2-3.1 cm/m2 LVIDs: 1.48 2.0-3.6 cm LVPWd: 1.43 0.7-1.1 cm LA Diam: 2.40 2.7-3.8/3.0-4.0 cm LAIDs Index: 1.29 1.5-2.3 cm/m2 LV Mass: 180.75 67-162/88-224 g LV Mass Index: 97.18 43-95/49-115 g/m2 LVOT Diam: 2.00 3.0+(-)1.3 cm 2D Systolic Function EF 4C: 53.10 >55% EF 2C: 58.60 >55% EF BiP: 56.30 >55% Mitral Valve MV Pk E: 0.49 MV PK A: 0.77 MV Decel Time: 293.00 E/A: 0.60 E'Lateral: 5.11 E'Medial: 3.26 E/E' Med: 15.00 E/E' Lat: 9.50 PHT: 86.00 MVA PHT: 2.56 Decel Gray: 1.67 Aortic Valve AoV Pk Sourav: 1.31 AoV Mn Sourav: 0.91 AoV VTI: 0.25 AoV Pk Grad: 7.00 Aov Mn Grad: 4.00 RADHA Cont.VTI: 2.49 AI Pk Sourav: 4.47 AI VTI: 1.89 AI Gray: 3.24 AI Alias Sourav: 0.39 AI RV - PISA: 9.00 ERO - PISA: 5.00 LVOT LVOT Pk Sourav: 1.11 LVOT Mn Sourav: 0.74 LVOT VTI: 0.20 LVOT Pk Grad: 5.00 LVOT Mn Grad: 2.00 LVOT Diam: 2.00 LVOT Area: 3.14 Diastolic Function MV Pk E: 0.49 MV Pk A: 0.77 E/A: 0.60 E'Medial: 3.26 E/E' Med: 15.00 E' Laterial: 5.11 E/E' Lat: 9.50 Right Ventricle TAPSE (mm): 19.10 TVS' Sourav: 12.70 Tricuspid Valve TR Pk Sourav: 2.20 TR Pk Grad: 19.00 RA Press: 3.00 RVSP: 22.00 Great Vessels Aorta Sinus of Valsalva: 4.60 2.0-3.5 cm Ao Asc: 4.50 2.1-3.4 cm Pulmonary Valve PV Pk Sourav: 1.06 Peak PV Grad: 4.00 Updated in Other Vendor System with Status of Final Valerio Lucero MD electronically signed on 06/11/2024 4:44:25 PM with status of Final
== END ==
LOC: HO.CARD 10:04
PROVIDERS: PCP Internal Medicine; Visit Provider Nurse Practitioner Family
DX: R07.9 Chest pain, unspecified (principal); E78.5 Hyperlipidemia, unspecified
CPT/HCPCS: 93017; 93306

== ENCOUNTER → 2024-08-08 07:38 | Outpatient (REF) | payer MEDICARE, SELFPAY ==
--- NOTE | 2024-08-08 07:41 | CA_ITS ---
Acquisition Time: 2024-08-08 07:58:49 Total Exercise Time: 00:02:00 Test Indications: CP, PVCS Medications: SEE H&P Protocol: LEXISCAN Max HR: 110 BPM 77% of Pred: 142 BPM Max BP: 110/80 mmHG Max Work Load: 1.0 METS Pharmacological stress test with Lexiscan, while pt marches in his chair, with reports of abdominal discomfort, with isolated PACs and PVCs, with normotensive response to injection. Nondiagnostic EKG for ischemia. In recovery, pt treated with IVP Aminophylline 75 mg to reverse Lexiscan, after which pt feeling back to baseline. Nuclear images pending. Test reviewed with Dr. Colvin. Referred By: Hunter Estrada Electronically Signed By: Hunter Estrada
== END ==
LOC: HO.CARD 07:38
PROVIDERS: PCP Internal Medicine
DX: R07.9 Chest pain, unspecified (principal)
CPT/HCPCS: 93017; J0280; J2785

== ENCOUNTER → 2024-08-08 07:41 | Outpatient (BNV) | payer MEDICARE, SELFPAY | PROVIDERS: PCP Internal Medicine | DX: I49.1 Atrial premature depolarization (principal); I49.3 Ventricular premature depolarization | CPT/HCPCS: 78452; 93016; 93018 ==

== ENCOUNTER 2024-09-06 10:06 | Outpatient (AMB) | payer MEDICARE, SELFPAY ==
--- NOTE | 2024-09-06 10:08 | A.OFFVIS_ITS ---
Intake Visit Reasons: 6m/PSA(psa?) Intake Note: Patient is Present for 6 month follow up/PSA Urology Med: Finasteride Antibiotic Allergy:None Blood Thinner:None Transport Specialist Required: No Allergies No Known Allergies Allergy (Verified 09/06/24 10:09) HPI Comments Details: Elvis is very pleasant male. He is a patient of Dr. Carrion. He is seen for the following urologic conditions - prostate cancer - rising PSA following treatment for prostate cancer Six-month follow-up PSA 3.4 Doubling time over 12 months He would prefer to continue with observation Did discuss initiation of intermittent hormone therapy Has been cycling finasteride PSA doubling time greater than 12 months No evidence of recurrence on PET-CT - 11/10 Urinary Symptoms Review - Rising PSA levels observed since 2012 but no specific urinary incontinence or frequency mentioned in the visit. - Patient is on 5-alpha reductase inhibitor cycling month on/off which seems to partly control PSA. Prostate cancer: Initial therapy prostatectomy 2006, external beam radiation for rising PSA 2012 PSA continues upward trend Prostate cancer was diagnosed [address] Fields. Diagnosis was reached by needle biopsy, for elevated PSA, PSA at diagnosis 4.7. The Ash grade is 4+3 = 7, at surgery with KAYLA. TNM Classification of Malignant Tumours (TNM) T3a The D'Anthony (NCCN) risk category is Intermediate Risk (PSA 10-20, Gl 7, T2). Initial therapy included Primary treatment, Prostatectomy (RRP/Robotic) 2006 , Additional treatment, Observation PSA rise 2012 to 1.2 , Additional treatment, External Beam Radiation finish April 2013. Recent labs included a PSA (prostate-specific antigen) Dec 2015 , < 0.1, a testosterone 413, Jun 2016 < 0.1, November 2016 , a PSA (prostate-specific antigen), < 0.1, 07/09 , a PSA (prostate-specific antigen) 0.1, 12/06 , a PSA (prostate-specific antigen), 0.1, T 416, 07/10 , a PSA (prostate-specific antigen) 0.2, 11/07 0.2 03/09 0.2, 09/08 0.3, 04/10 0.4, 11/09 0.5, 05/11 0.8, 11/10 1.1, 03/12 0.4, 08/11 0.8, 02/11 1.3, 06/14 1.5, 10/12 1.9, 02/12 2.5, 09/13 3.4 Imaging - 11/10 PET/CT Pylarify - no focal recurrence or metastatic disease Associated conditions erectile dysfunction Yes On Viagra osteopenia Yes Complete infusion Therapeutic plan: Six-month follow-up PSA Erectile Dysfunction Responsive to Viagra PFSH Medical History Erectile dysfunction Osteoporosis Hyperlipidemia Rising PSA following treatment for malignant neoplasm of prostate Erectile dysfunction following radical prostatectomy Prostate cancer Surgical History History of radical retropubic prostatectomy History of hernia repair History of hip surgery Review of Systems Const Denies chills and Denies fever(s) Card Reports no additional complaints and Denies syncope Resp Denies cough GI Denies abdominal pain and Denies heartburn Reports as per HPI and Denies change in libido Neuro Denies syncope Psych Denies change in libido Endo Denies change in libido Physical Exam Const General: cooperative, healthy appearing, comfortable and no acute distress Orientation/consciousness: patient oriented x3 HEENT Face and sinus: Yes normal facial exam Mouth: moist mucous membranes Neck Neck: Yes normal visual inspection, Yes full ROM and Yes trachea midline Chest Chest palpation & inspection: normal inspection of the chest Resp Effort & Inspection: normal respiratory effort, able to speak in complete sentences and no respiratory distress GI Inspection: Yes normal to inspection Back/Spine/Pelvis Cervical Spine: normal cervical lordosis Thoracic/Lumbar Spine: thoracic and lumbar spine normal to inspection Skin General skin exam: no rashes or lesions noted Neuro General: patient oriented x3, gait normal, tone normal and moves all extremities Extrem General: Yes normal to inspection and Yes capillary refill normal Assessment & Plan Assessment & Plan (1) Prostate cancer: Comment: Radical prostatectomy 2006, salvage radiation 2012 Code(s): C61 - Malignant neoplasm of prostate Category: Medical (2) Biochemically recurrent castration-sensitive adenocarcinoma of prostate: Code(s): C61 - Malignant neoplasm of prostate; R97.21 - Rising PSA following treatment for malignant neoplasm of prostate; Z19.1 - Hormone sensitive malignancy status Category: Medical Plan Plan 1. Rising PSA following treatment for malignant neoplasm of prostate R97.21 History of prostate cancer treated in 2006 (prostatectomy) and 2012 (radiation). Slowly rising PSA since that time, managed with finasteride cycling. PET CT in October 2021 negative for metastasis. Monitor PSA every six months. Hormone therapy considered if PSA reaches 4-10 ng/mL. 2. Hyperlipidemia Maintain treatment with pravastatin. Continue routine monitoring. Discussion Notes During today?s visit, I reviewed the patient?s historical and current management of prostate cancer with rising PSA levels. PSA monitoring will continue every six months given the slow, non-aggressive rise in levels. Current finasteride treatment cycling month on/month off will continue, having noted it appears to partially stabilize PSA. The potential use of hormone therapy for 18 months was discussed should PSA reach clinically significant levels (between 4-10 ng/mL), considering higher thresholds such as 6-7 ng/mL. Risks, benefits, and alternatives of continuing current management versus early hormone therapy were reviewed, with consent for monitoring approach agreed upon by the patient. We also discussed hyperlipidemia management, confirming continued use of pravastatin without changes. The patient is encouraged to maintain current lifestyle and activity level, which includes daily walking with his dog. Patient Instructions - Continue current regimen of finasteride on a month on/off cycle as previously instructed. - Take pravastatin as prescribed for hyperlipidemia. - Maintain calcium supplementation. - Continue current physical activity, including walking the dog twice daily. - Return for PSA testing every six months. - Report any significant changes in urinary symptoms or health status. Orders: Orders Prostate Specific Antigen 6 Months C61 - Malignant neoplasm of prostate, R97.21 - Rising PSA following treatment for malignant neoplasm of prostate, Z19.1 - Hormone sensitive malignancy status Coding Level of Care Code Est Pt Level 3 (28078) Complex EM visit Add On G2211 Diagnoses Prostate cancer C61 Biochemically recurrent castration-sensitive adenocarcinoma of prostate C61; R97.21; Z19.1
== END 2024-09-06 10:34 | disposition home or self-care (01) ==
LOC: HO.HUSH 10:07
PROVIDERS: PCP Internal Medicine; Visit Provider Urology
DX: C61 Malignant neoplasm of prostate (principal); R97.21 Rising PSA following treatment for malignant neoplasm of prostate; Z19.1 Hormone sensitive malignancy status
CPT/HCPCS: 99213; G2211

== ENCOUNTER → 2024-09-06 10:06 | Outpatient (BNVA) | payer MEDICARE, SELFPAY | PROVIDERS: PCP Internal Medicine; Visit Provider Urology | DX: C61 Malignant neoplasm of prostate (principal); R97.21 Rising PSA following treatment for malignant neoplasm of prostate; Z19.1 Hormone sensitive malignancy status | CPT/HCPCS: 99212 ==

== ENCOUNTER 2025-04-08 09:48 | Outpatient (AMB) | payer MEDICARE, SELFPAY ==
--- NOTE | 2025-04-08 09:56 | A.OFFVIS_ITS ---
Intake Visit Reasons: 6m/PSA Intake Note: Patient is Present for 6 month follow up/PSA Urology Med: Finasteride Antibiotic Allergy:None Blood Thinner:None Labs done : 03/24/25 PSA 4.4 Patient is requesting refill on medications [facility] Nurse Required: No Accompanied by: Self / Same As Patient Allergies No Known Allergies Allergy (Verified 04/08/25 09:59) HPI Comments Details: Elvis is very pleasant male. He is a patient of Dr. Carrion. He is seen for the following urologic conditions - prostate cancer - rising PSA following treatment for prostate cancer 04/15 4.4 continue slowed doubling time. Would like to continue with cycling 5 AR 09/13 PSA 3.4 Doubling time over 12 months He would prefer to continue with observation Did discuss initiation of intermittent hormone therapy Has been cycling finasteride PSA doubling time greater than 12 months No evidence of recurrence on PET-CT - 11/10 Urinary Symptoms Review - Rising PSA levels observed since 2012 but no specific urinary incontinence or frequency mentioned in the visit. - Patient is on 5-alpha reductase inhibitor cycling month on/off which seems to partly control PSA. Prostate cancer: Initial therapy prostatectomy 2006, external beam radiation for rising PSA 2012 PSA continues upward trend Prostate cancer was diagnosed [address] Fields. Diagnosis was reached by needle biopsy, for elevated PSA, PSA at diagnosis 4.7. The Bristol grade is 4+3 = 7, at surgery with KAYLA. TNM Classification of Malignant Tumours (TNM) T3a The D'Anthony (NCCN) risk category is Intermediate Risk (PSA 10-20, Gl 7, T2). Initial therapy included Primary treatment, Prostatectomy (RRP/Robotic) 2006 , Additional treatment, Observation PSA rise 2012 to 1.2 , Additional treatment, External Beam Radiation finish April 2013. Recent labs included a PSA (prostate-specific antigen) Dec 2015 , < 0.1, a testosterone 413, Jun 2016 < 0.1, November 2016 , a PSA (prostate-specific antigen), < 0.1, 07/09 , a PSA (prostate-specific antigen) 0.1, 12/06 , a PSA (prostate-specific antigen), 0.1, T 416, 07/10 , a PSA (prostate-specific antigen) 0.2, 11/07 0.2 03/09 0.2, 09/08 0.3, 04/10 0.4, 11/09 0.5, 05/11 0.8, 11/10 1.1, 03/12 0.4, 08/11 0.8, 02/11 1.3, 06/14 1.5, 10/12 1.9, 02/12 2.5, 09/13 3.4 Imaging - 11/10 PET/CT Pylarify - no focal recurrence or metastatic disease Associated conditions erectile dysfunction Yes On Viagra osteopenia Yes Complete infusion Therapeutic plan: Six-month follow-up PSA Erectile Dysfunction Responsive to Viagra PFSH Medical History Erectile dysfunction Osteoporosis Hyperlipidemia Rising PSA following treatment for malignant neoplasm of prostate Erectile dysfunction following radical prostatectomy Prostate cancer Surgical History History of radical retropubic prostatectomy History of hernia repair History of hip surgery Review of Systems Const Denies chills and Denies fever(s) Card Reports no additional complaints and Denies syncope Resp Denies cough GI Denies abdominal pain and Denies heartburn Reports as per HPI and Denies change in libido Neuro Denies syncope Psych Denies change in libido Endo Denies change in libido Physical Exam Const General: cooperative, healthy appearing, comfortable and no acute distress Orientation/consciousness: patient oriented x3 HEENT Face and sinus: Yes normal facial exam Mouth: moist mucous membranes Neck Neck: Yes normal visual inspection, Yes full ROM and Yes trachea midline Chest Chest palpation & inspection: normal inspection of the chest Resp Effort & Inspection: normal respiratory effort, able to speak in complete sentences and no respiratory distress GI Inspection: Yes normal to inspection Back/Spine/Pelvis Cervical Spine: normal cervical lordosis Thoracic/Lumbar Spine: thoracic and lumbar spine normal to inspection Skin General skin exam: no rashes or lesions noted Neuro General: patient oriented x3, gait normal, tone normal and moves all extremities Extrem General: Yes normal to inspection and Yes capillary refill normal Assessment & Plan Assessment & Plan (1) Prostate cancer: Comment: Radical prostatectomy 2006, salvage radiation 2012 Code(s): C61 - Malignant neoplasm of prostate Category: Medical (2) Rising PSA following treatment for malignant neoplasm of prostate: Code(s): R97.21 - Rising PSA following treatment for malignant neoplasm of prostate Category: Medical Plan Six-month follow-up Orders: Orders PSA,Total (Free>4and<10) 6 Months C61 - Malignant neoplasm of prostate, R97.21 - Rising PSA following treatment for malignant neoplasm of prostate, Z19.1 - Hormone sensitive malignancy status Medications: Refilled finasteride 5 mg PO DAILY 90 tabs 1RF 90 days N13.8 - Other obstructive and reflux uropathy, N40.1 - Benign prostatic hyperplasia with lower urinary tract symptoms, R33.9 - Retention of urine, unspecified, R97.21 - Rising PSA following treatment for malignant neoplasm of prostate Patient Instructions: This note is constructed using voice recognition software. While every effort has been made to ensure accuracy inspecting supervisor errors may have been included. Imaging studies, laboratory and physical exam results were discussed and reviewed in detail. No major barriers to patient understanding were identified. An opportunity to ask questions regarding the treatment plan was provided. All questions were answered. The patient expressed understanding and agreement with the above treatment plan. The patient is aware they should contact our office by phone for worsening of their current condition or the appearance of new urologic symptoms. Compliance is encouraged with any medications and followup testing that is ordered. It is a privilege to participate in the urologic care of your patient. If you have any questions or concerns regarding treatment for the above conditions, or other urologic issues, please do not hesitate to contact me. The office telephone contact is [phone]. Sincerely, Dr David Gandhi MD, [facility] - Urology Compassionate Specialist Care for the Genitourinary System Coding Level of Care Code Est Pt Level 3 (93283) Complex EM visit Add On G2211 Diagnoses Prostate cancer C61 Rising PSA following treatment for malignant neoplasm of prostate R97.21
== END 2025-04-08 11:01 | disposition home or self-care (01) ==
LOC: HO.HUSH 09:49
PROVIDERS: PCP Internal Medicine; Visit Provider Urology
DX: C61 Malignant neoplasm of prostate (principal); R97.21 Rising PSA following treatment for malignant neoplasm of prostate
CPT/HCPCS: 99213; G2211

== ENCOUNTER → 2025-04-08 09:48 | Outpatient (BNVA) | payer MEDICARE, SELFPAY | PROVIDERS: PCP Internal Medicine; Visit Provider Urology | DX: R97.21 Rising PSA following treatment for malignant neoplasm of prostate (principal) | CPT/HCPCS: 99212 ==